=== PATIENT | female | born 1965 | race Caucasian/White ===

== ENCOUNTER 2017-10-10 18:49 | Emergency (ER) | payer SELFPAY ==
--- NOTE | 2017-10-10 19:38 | ER Document Report ---
HPI - HPI Patient complains to provider of: Splint replacement Onset: This morning Pain Level: 3 Context: 52-year-old female visiting from [place] for the next 6 days has a diagnosed hairline fracture of the left thumb metacarpal that occurred 2 weeks ago. She was seen prior to coming to [place] and was put in a thumb spica. She got it wet today so she took the splint off and remove the padding and is now having discomfort with the splint that she replaced. She does have an appointment with orthopedics when she gets back to [place] in 6 days. She did not reinjure it while the splint was off. Associated Symptoms: None Exacerbated by: Other - See above Relieved by: Denies Similar symptoms previously: Yes Recently seen / treated by doctor: Yes - ROS ROS below otherwise negative: Yes Systems Reviewed and Negative: Yes All other systems reviewed and negative Past Medical History - General Information source: Patient - Social History Smoking Status: Unknown if Ever Smoked Lives with: Family Family History: Reviewed & Not Pertinent - Medical History Medical History: Negative Surgical Hx: Negative Vertical Provider Document - CONSTITUTIONAL Agree With Documented VS: Yes Exam Limitations: No Limitations General Appearance: No Apparent Distress - INFECTION CONTROL TRAVEL OUTSIDE OF THE [place] IN LAST 30 DAYS: No - MUSCULOSKELETAL/EXTREMETIES Musculoskeletal/Extremeties: MAEW, Tender - left thumb metacarpel, non tender scaphoid. negative: Edema, Eccymosis - NEURO Level of Consciousness: Awake Motor/Sensory: No Motor Deficit, No Sensory Deficit Course - Vital Signs Vital signs: Temp Pulse Resp BP Pulse Ox 99.0 F 107 H 18 153/95 H 98 10/10/17 18:54 10/10/17 18:54 10/10/17 18:54 10/10/17 18:54 10/10/17 18:54 Procedures - Immobilization Left Thumb Time completed: 19:50 Pre-Proc Neuro Vasc Exam: Normal Immobilizer type: Thumb spica Performed by: PCT Post-Proc Neuro Vasc Exam: Normal Alignment checked and good: Yes Discharge - Discharge Clinical Impression: splint replacement Condition: Good Disposition: HOME, SELF-CARE Instructions: Splint Pending Casting ([facility]), Splint Precautions ([facility]) Additional Instructions: See the orthopedist that you are planning on seeing when you return to [place] Do not get the splint wet Return to the emergency department here for any concerns before you return in 6 days.
[2017-10-10 19:44] VITALS: BP 95/73
== END 2017-10-10 19:50 | disposition home or self-care (01) ==
LOC: ER 18:49 → EDSEX 18:49 → ER 19:50
PROC: 2W3HX1Z Immobilization of Left Thumb using Splint (ICD-10-PCS; principal; 2017-10-10)
DX: Z47.89 Encounter for other orthopedic aftercare (principal)
CPT/HCPCS: 99283